=== PATIENT | male | born 1990 | race Caucasian/White ===

== ENCOUNTER 2020-10-01 21:06 | Emergency (ER) | payer BC, OTHER ==
[2020-10-01 21:20] VITALS: BP 145/87; PULSE 89; RESP 18; TEMP 98.6
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
== END 2020-10-01 22:50 | disposition home or self-care (01) ==
LOC: EC 21:06
DX: S01.81XA Laceration without foreign body of other part of head, initial encounter (principal); V89.2XXA Person injured in unspecified motor-vehicle accident, traffic, initial encounter; Y92.410 Unspecified street and highway as the place of occurrence of the external cause
CPT/HCPCS: 70450; 72125; 99283